=== PATIENT | female | born 1980 | race African-American/Black ===

== ENCOUNTER 2023-05-22 08:13 | Emergency (ER) | payer OTHER, SELFPAY ==
[2023-05-22 09:14] LABS: Basophils Absolute Auto 0.1 K/mm3 (0.0-0.1); Basophils Percent Auto 0.3 % (0.2-1.2); Eosinophils Absolute Auto 0.3 K/mm3 (0-0.3); Eosinophils Percent Auto 1.3 % (0-4.4); Hematocrit 30.9 % (37.0-47.0); Hemoglobin 8.6 g/dL (12.0-15.0); Immature Granulocyte Absolute 0.09 K/mm3 (0.00-0.031); Immature Granulocyte Percent A 0.5 % (0-0.5); Lymphocytes Absolute Auto 2.64 K/mm3 (0.9-3.2); Lymphocytes Percent Auto 13.8 % (18.3-44.2); Mean Corpuscular HGB Conc 27.8 g/dl (32-36); Mean Corpuscular Hemoglobin 18.1 pg (26-34); Mean Corpuscular Volume 65.1 fl (80-100); Mean Platelet Volume 9.3 fl (7.4-10.4); Monocytes Absolute Auto 1.3 K/mm3 (0.1-0.6); Monocytes Percent Auto 6.6 % (2.6-8.5); Neutrophils Absolute Auto 14.8 K/mm3 (1.3-6.7); Neutrophils Percent Auto 77.5 % (45.5-73.1); Platelet Count Result 817 k/mm3 (150-375); Red Blood Count 4.75 M/mm3 (4.2-5.4); Red Cell Distribution Width 23.8 % (11.5-14.5); White Blood Count 19.1 K/mm3 (4.5-10.0)
[2023-05-22 09:29] LABS: Prothrombin Time 13.5 Seconds (11.1-14.7)
--- NOTE | 2023-05-22 11:02 | ED.PREGNANCY ---
HPI - General Chief complaint: Vaginal Bleeding Stated complaint: Vaginal Bleeding for two months Time Seen by Provider: 05/22/23 08:44 History of Present Illness HPI Narrative: This is a 42-year-old female, with history of lupus, who presents emergency department with persistent vaginal bleeding for the past 2 months. The patient states she was seen by her Ob with recommendation for Nexplanon for heavy periods and resulting anemia. She states since Nexplanon implantation (2 months ago), she has had small amount of daily bleeding. Over the past week, she is noted associated foul-smelling vaginal discharge without pain. She states 2 months ago she underwent comprehensive STD testing and was negative. Related Data Allergies Allergy/AdvReac Type Severity Reaction Status Date / Time No Known Allergies Allergy Verified 05/22/23 08:31 Review of Systems Review of Systems: CONSTITUTIONAL: Denies fever, chills, or sweats. CARDIOVASCULAR: Denies chest pain, palpitations, or edema. RESPIRATORY: Denies cough or dyspnea. GASTROINTESTINAL: Denies abdominal pain, nausea, vomiting, or diarrhea. GENITOURINARY: Vaginal bleeding, intermittent cramping Denies dysuria or hematuria. SKIN: Denies rash or itching. MUSCULOSKELETAL: Denies back pain, joint pain, or myalgia. PSYCHIATRIC: Denies anxiety or depression. PMFSH Past Medical History Medical History SLE (systemic lupus erythematosus) Surgical History Surgical History No significant past surgical history Social History Social History Smoking status: Never smoker Alcohol intake: never Substance use: never Exam Narrative: GENERAL: Well-appearing, well-nourished, and in no acute distress. HEAD: Normocephalic, atraumatic. EYES: PERRLA and EOMI. CHEST: Clear to auscultation. No respiratory distress. No wheezes rales or rhonchi HEART: Regular rate and rhythm. No murmur heard. Normal peripheral pulses. ABDOMEN: Soft, nontender, nondistended, normal active bowel sounds. : (chaperoned by female automated access systems technician Cheryl) There appears to be old blood in the vaginal vault without active bleeding. There is no purulent drainage noted. Cervical motion tenderness on bimanual exam with some tenderness in the right adnexa EXTREMITIES: Normal range of motion. No edema. SKIN: Warm, dry, no rash. NEURO: No focal deficits. Alert and oriented x3. PSYCH: Normal mood and affect. Course Course Emergency Course: 12:00 - Hemoglobin 8.6. White count elevated to 19.1. UA not concerning for UTI. test negative. The patient's pelvic exam is concerning for PID. She states she tested negative for GC chlamydia in March and has not been sexually active since then. She is aware previous white blood cell count elevations and is currently managed by her crop picker for the same. Will treat with Rocephin and doxycycline with recommendations for OB and hematology follow-up. Discussed return and emergency precautions including signs/symptoms of acute abdomen. The patient voiced understanding and is comfortable with the plan. All questions answered to her satisfaction. Vital Signs Vital signs: Vital Signs Pulse Rate 75 05/22/23 11:34 Respiratory Rate 18 05/22/23 11:34 Blood Pressure 191/94 H 05/22/23 11:34 Pulse Oximetry 100 05/22/23 11:34 Pulse Rate 75 05/22/23 11:34 Respiratory Rate 18 05/22/23 11:34 Blood Pressure 191/94 H 05/22/23 11:34 Pulse Oximetry 100 05/22/23 11:34 MDM - OB/Uterine Contractions MDM Narrative Medical decision making narrative: Plan: Labs, test, pain control reassess Differential diagnosis: PID, dysfunctional uterine bleeding, medication side effect UTI, other Lab Data 05/22/23 09:07 Labs: Lab Results
[2023-05-22 11:26] LABS: Appearance Urine Cloudy (Clear); Bacteria Urine Rare /hpf; Bilirubin Urine Negative (Negative); Blood Urine 2+ (Negative); Color Urine Yellow (Yellow); Glucose Urine UA Negative (Negative); Ketones Urine Negative (Negative); Leukocyte Esterase Ur Trace LEU/UL (Negative); Nitrate Urine Negative (Negative); Non Pathogenic Casts 0-2; Protein Urine Negative (Negative); RBC Urine 0-2 /hpf (0-2); Specific Grav Ur 1.016 (1.001-1.035); Squamous Epithelial Cell Urine Moderate /hpf (Few); WBC Urine 0-5 /hpf
[2023-05-22 11:27] LABS: Add Urine Microscopic? YES
[2023-05-22] MEDS: ACETAMINOPHEN 500 MG TABLET 1000 MG PO (11:33)
[2023-05-22] MEDS: cefTRIAXone 1 GM VIAL 0.5 GM IM (11:33)
[2023-05-22 11:34] VITALS: BP 191/94; PULSE 75; RESP 18; O2SAT 100
[2023-05-22] MEDS: LIDOCAINE HCL 1% LOCAL INJ 10 ML VIAL (11:54)
== END 2023-05-22 12:52 | disposition home or self-care (01) ==
PROVIDERS: Emergency Provider Preventive Medicine Aerospace Medicine
DX: N93.9 Abnormal uterine and vaginal bleeding, unspecified (principal); N93.8 Other specified abnormal uterine and vaginal bleeding; M32.9 Systemic lupus erythematosus, unspecified
CPT/HCPCS: 36415; 81001; 85025; 85610; 96372; 99283; A9270; J0696